=== PATIENT | female | born 1995 | race African-American/Black ===

== ENCOUNTER → 2018-07-26 15:16 | Outpatient (CLI) | payer OTHER ==
[2015-10-15 05:21] VITALS: BMI 26.8
[~2018-07-26 15:16] MED LIST: IBUPROFEN600 MG PO; MOTRIN600 MG PO; PERCOCET 5-3251 TAB PO; PERCOCET 5/3251 TA1 PO; PRENATAL COMPLE1 TAB PO
== END | disposition home or self-care (01) ==
LOC: D.LDO 15:16
PROVIDERS: ATTEND Obstetrics & Gynecology
DX: O26.899 Other specified pregnancy related conditions, unspecified trimester (principal); Z3A.00 Weeks of gestation of pregnancy not specified

== ENCOUNTER → 2018-10-29 07:37 | Outpatient (CLI) | payer OTHER ==
[2015-10-15 05:21] VITALS: BMI 26.8
[2018-10-29 08:46] LABS: APPEARANCE CLEAR (CLEAR); BACTERIA MODERATE /hpf (NONE SEEN); BILIRUBIN NEGATIVE (NEGATIVE); COLOR YELLOW (YELLOW); EPITHELIAL CELLS 0-5 /hpf (0-5); GLUCOSE NEGATIVE (NEGATIVE); KETONE NEGATIVE (NEGATIVE); MUCUS <1+ /lpf (NONE SEEN); NITRITE NEGATIVE (NEGATIVE); PROTEIN NEGATIVE (NEGATIVE); SPECIFIC GRAVITY 1.015 (1.005-1.020); WHITE CELLS - URINE 0-5 /hpf (0-5)
== END | disposition home or self-care (01) ==
LOC: D.LDO 07:37
PROVIDERS: ATTEND Obstetrics & Gynecology
DX: O26.893 Other specified pregnancy related conditions, third trimester (principal); Z3A.33 33 weeks gestation of pregnancy

== ENCOUNTER 2018-11-25 04:07 | Outpatient (CLI) | payer OTHER ==
[2015-10-15 05:21] VITALS: BMI 26.8
== END 2018-11-25 06:14 | disposition home or self-care (01) ==
LOC: D.LDO 04:07
PROVIDERS: ATTEND Obstetrics & Gynecology
DX: O26.893 Other specified pregnancy related conditions, third trimester (principal); Z3A.37 37 weeks gestation of pregnancy

== ENCOUNTER 2018-12-10 05:45 | Inpatient (IN) | payer OTHER ==
[~2018-12-10] VITALS: Ht 160 cm; Wt 102.1 kg
[2018-12-10] VITALS (14 sets, daily range): BP systolic 103–130; BP diastolic 57–86; BMI 39.9
--- NOTE | ~2018-12-10 | OP ---
PATIENT NAME: STEVIE FOLEY MEDICAL RECORD: [id number] :93 LOCATION:[id number] ADMISSION DATE:12/10/18 SURGEON: ALEXX KOWALSKI MD DATE OF OPERATION: 12/10/2018 PREOPERATIVE DIAGNOSES: 1. at 39 weeks and 2 gestational age. 2. History of prior section. POSTOPERATIVE DIAGNOSES: 1. Mother delivered at 39 and 2. 2. History of section. 3. Pelvic adhesions. PROCEDURES: 1. Exploratory laparotomy. 2. Lysis of adhesions. 3. Repeat low transverse section. SURGEON: Alexx Kowalski MD. INDUSTRIAL SERVICER: Manan Blackwell ANESTHESIOLOGIST: Dr. Vargas. ANESTHETIC: Spinal. FINDINGS: Viable male infant, vertex presentation, Apgars 9 and 9, weight 3450 grams. Dense band of adhesions of the lower uterine segment to the bladder and abdominal wall. What was visualized of the pelvic anatomy is unremarkable otherwise. SPECIMENS REMOVED: Placenta. SPECIMEN DISPOSITION: Discarded. ESTIMATED BLOOD LOSS: 700 cc. FLUIDS: 1750 cc of lactated Ringer's. URINE OUTPUT: 500 cc of clear urine. COMPLICATIONS: None. DRAIN: Deleon to gravity. INDICATIONS: The patient is a 23-year-old female at 39 weeks gestation with history of prior section. The patient is consented for repeat and any indicated procedure. DESCRIPTION OF PROCEDURE: After informed consent was assured, the patient was taken to the operating room where anesthetic was obtained. The patient was prepped and draped and the anesthetic was found to be adequate. Incision was made over the old scar and carried down to the underlying layer of the fascia, which was opened in the midline and the opening extended out laterally. Rectus OPERATIVE REPORT [id number] STEVIE FOLEY bellies were now dissected free superiorly and inferiorly and in the midline. The peritoneum was entered sharply. Upon entering the peritoneum, a dense adhesion band on the lower segment of the uterus was encountered. This adhesion band was taken down sharply and with Bovie cautery. Once the adhesion had been taken down and the rectus belly stretched. A Caceres all-purpose retractor was then set and it has been placed into the pelvis and bladder flap developed. Low transverse hysterotomy was performed. The was delivered onto the abdomen atraumatically with the assistance of a Kiwi vacuum extractor. Care was used while placing the Kiwi between the anterior and posterior fontanels. The cord was doubly clamped and cut and the passed to the attendant. Cord blood sample and cord gases obtained. The placenta was delivered via Crede maneuver. Uterus was exteriorized, cleared of all clot and debris and then closed with a running locked stitch of chromic. Uterus was now returned to the abdomen after irrigating the posterior cul-de-sac. Inspection of the hysterotomy reveals adequate hemostasis. Rectus bellies were reapproximated with a loose piece of chromic in the midline. Fascia was now closed with looped PDS. After closure of the fascia, subcutaneous tissues were irrigated, bleeding vessels cauterized, and the skin was reapproximated with 3-0 Monocryl on a Yeyo needle. Sterile dressing was applied. Sponge, lap, needle counts were correct times 2. The patient was taken to the recovery area and to nursery. TRANSINT:[id number] Voice Confirmation ID: [id number] DOCUMENT ID: [id number] ALEXX KOWALSKI MD CC: [id number] DICTATION DATE: 12/10/18 1049 FILAMENT CUTTER: 12/10/18 1116 ADM IN [facility] [address] [place] [address]
[2018-12-10 06:46] LABS: HEMATOCRIT 30.4 % (36.0-48.0); HEMOGLOBIN 9.7 g/dL (12-16); MCH 24.3 pg (26.0-34.0); MCHC 31.9 g/dL (31.0-37.0); MEAN PLATELET VOLUME 10.3 fL (7.4-10.4); RDW 15.4 % (11.5-14.5)
[2018-12-10 06:59] LABS: APPEARANCE HAZY (CLEAR); BILIRUBIN NEGATIVE (NEGATIVE); COLOR YELLOW (YELLOW); GLUCOSE NEGATIVE (NEGATIVE); KETONE NEGATIVE (NEGATIVE); NITRITE NEGATIVE (NEGATIVE); PROTEIN NEGATIVE (NEGATIVE); SPECIFIC GRAVITY 1.005 (1.005-1.020); UROBILINOGEN NORMAL (NORMAL)
[2018-12-10 07:00] LABS: EPITHELIAL CELLS 0-5 /hpf (0-5); RED CELLS - URINE NONE SEEN /hpf (0-5); WHITE CELLS - URINE 0-5 /hpf (0-5)
[2018-12-10 07:01] LABS: BACTERIA FEW /hpf (NONE SEEN)
--- NOTE | 2018-12-10 10:55 | NUR ---
PT ARRIVED ACTIVELY VOMITING. NEW ORDERS REC'D AND WILL PROVIDE ANTIENEMIC. PT A&O. VSS. FUNDUS FIRM AND MIDLINE. PT UNABLE TO MOVE LEGS/WIGGLE TOES R/T EPIDURAL. NO IMMEDIATE NEEDS. WILL CTM.
--- NOTE | 2018-12-10 11:43 | NUR ---
RECEIVED PT IN ROOM 1273 WITH RR NURSE WITH PT. VS NOTED. FUNDUS FIRM AT U/U. RUBRA LOCHIA SMALL AMT. PERIPAD CHANGED. NO CLOTS NOTED. ABDOMINAL DRESSING DRY WITHOUT DRAINAGE NOTED. ICE PACK ON INCISION. KERNS TO GRAVITY DRAINING DARK, YELLOW URINE. STAT LOCK TO KERNS TO SECURE TO LEG. PIV OF NS WITH PITOCIN 20 UNITS TO LEFT WRIST-18 GAUGE. PLACED ON PUMP AT 125 ML/HR. SITE CLEAR. PT STATES INCISIONAL PAIN OF "5" ON 0-10 PAIN SCALE. ORIENTED TO ROOM, BED, AND CALL LIGHT. SR UPX 2. CALL LIGHT IN REACH.
--- NOTE | 2018-12-10 12:23 | NUR ---
PT ADMIN 2MG DILAUDID IVP PER ORDER FOR PAIN RATED 9/10, SEE EMAR FOR DOC.
--- NOTE | 2018-12-10 13:40 | NUR ---
THIS RN TO ROOM FOR PT CHECK. PT RESTING, DENIES NEEDS AT THIS TIME. KERNS CATH DRAINING CLEAR YELLOW URINE, UROMETER EMPTIED. WILL CONT TO MONITOR.
--- NOTE | 2018-12-10 14:15 | NUR ---
PT ADMIN 3OMG TORADOL IVP SCHEDULED, SEE EMAR FOR DOC. PT RATING PAIN 10/10 AT THIS TIME.
--- NOTE | 2018-12-10 14:20 | NUR ---
FF, ML, U/U. SMALL RUBRA LOCHIA WITHOUT CLOTS. PERIPAD CHANGED. PT PROVIDED WITH NEW ICE PACK TO ABD, APPLE JUICE PER REQUEST, AND CUP OF ICE. PT DENIES FURTHER NEEDS AT THIS TIME. SRUx2, CL IN REACH. SIG OTHER ON BEDSIDE COUCH.
--- NOTE | 2018-12-10 16:00 | NUR ---
THIS RN TO ROOM FOR PT CHECK. PT REQUESTING NEXT DOSE PAIN MED WHEN AVAILABLE. KERNS CATH UROMETER EMPTIED, ADEQUATE URINE OUTPUT NOTED AND CHARTED. WILL RETURN WITH PAIN MED AT 4HRS FROM PREV DOSE.
--- NOTE | 2018-12-10 16:30 | NUR ---
PT ADMIN 2MG DILAUDID IVP PER ORDER, SEE EMAR FOR DOC. PT RATING PAIN 9/10 AT THIS TIME. FF, ML, U/U. SMALL RUBRA LOCHIA, NO CLOTS. PERIPAD CHANGED.
--- NOTE | 2018-12-10 17:53 | NUR ---
PT C/O ITCHING. NO REDNESS NOTED TO ARMS WHERE PT STATES ITCHING.
--- NOTE | 2018-12-10 18:03 | NUR ---
BENADRYL 25 MG GIVEN PO ORDERED FOR PT C/O ITCHING. PT INSTRUCTED ON MED. VERBALIZES UNDERSTANDING.
--- NOTE | 2018-12-10 18:10 | NUR ---
PIV CONVERTED TO SALINE LOCK. PT GIVEN PERCOCET 10/325 PO ORDERED FOR PAIN OF "6" ON 0-10 PAIN SCALE. KERNS DC'D WITH 1100 ML OF DARK, YELLOW URINE NOTED IN BAG. PT INSTRUCTED TO CALL NURSE WHEN HAS URGE TO VOID AND NOT GET OUT OF BED WITHOUT NURSE. PT VERBALIZES UNDERSTANDING.
--- NOTE | 2018-12-10 19:45 | NUR ---
ASSESSMENT PER FLOW SHEET, VS OBTAINED, SALINE LOCK TO LEFT WRIST INTACT WITH NO REDNESS OR EDEMA, FF, ML, U/U, LITE BLEEDING NOTED WITH NO CLOTS, [employer] WITH LARGE DRESSING CDI, PT INFORED THAT SHE WAS GOING TO BE TRANSFERRED TO [facility], PT STATES "OH, THAT SOUNDS GOOD", PT INST ON GETTING UP TO BR, PT VERBALIZES UNDERSTANDING, PT UP TO BR WITH ASSISTANCE, GAIT STEADY, VOIDED 300 MLS OF BLOOD TINGED URINE BY SELF WITH NO DIFFICULTY, PT CLEANED UP WITH WET WARM WASH CLOTHS, CRISTIANA PAD, PANTIES, AND CLEAN GOWN APPLIED, PT BACK TO SIDE OF BED, INFORMED PT THAT I WILL TRANSFER HER VIA WC TO OTHER ROOM
--- NOTE | 2018-12-10 20:10 | NUR ---
PT TRANSFERRED VIA WC TO ROOM 1257 WITH ALL BELONGINGS, FAMILY IN ROOM, PT TRANSFERS SELF TO BED, PT ORIENTED TO ROOM, PT INST TO USE CALL LIGHT FOR ANY ASSISTANCE, PT VERBALIZES UNDERSTANDING, BED IN LOW POSITION, SIDE RAILS X 2, CALL LIGHT IN REACH
--- NOTE | 2018-12-10 20:40 | NUR ---
BABY TO ROOM PER THIS RN, BANDS CHECKED
--- NOTE | 2018-12-10 21:18 | NUR ---
PT RESTING, FEMALE HOLDING , PT DENIES NEEDS NEEDS AT THIS TIME
--- NOTE | 2018-12-10 22:28 | NUR ---
PT TEST PREPARER LIGHT, C/O INC PAIN, ADM PERCOCET PER MD ORDERS, SEE EMAR, PT DENIES FURTHER NEEDS, BABY IN OPEN CRIB CART AND FOB AT BEDSIDE
--- NOTE | 2018-12-10 23:40 | NUR ---
PT AWAKE, ADM TORADOL PO PER MD ORDERS, SEE EMAR, VS OBTAINED, PT DENIES FURTHER NEEDS, FOB BOTTLE FEEDING INFANT
--- NOTE | 2018-12-11 00:41 | NUR ---
PT VISITING WITH FOB, BABY IN OPEN CRIB CART, PT REPORTS VOIDING WITH NO DIFFICULTY, EMPTIED 500 MLS OF BLOOD TINGED URINE FROM [place] HAT, PT RATES INC PAIN 09/05, SCD'S APPLIED AND WORKING PROPERLY, DENIES NEEDS, BED IN LOW POSITION, SIDE RAILS X 2, CALL LIGHT IN REACH
--- NOTE | 2018-12-11 02:44 | NUR ---
UPON ENTERING ROOM, PT IS RESTING WITH EYES CLOSED, LAYING ON BED, PT AROUSES TO SOFT VERBAL STIMULATION, PT INST ON STAYING AWAKE WHILE IN BED WITH PT, PT VERBALIZES UNDERSTANDING, OFFERED PAIN MED AT THIS TIME, PT STATES "I'M FINE RIGHT NOW, I DON'T NEED ANYTHING FOR PAIN", SCD'S ON AND WORKING PROPERLY, DENIES NEEDS, FOB ASLEEP ON COUCH, BED IN LOW POSITION, SIDE RAILS X 2, CALL LIGHT IN REACH
--- NOTE | 2018-12-11 03:10 | NUR ---
REPORT RECEIVED FROM FREDERIC MAI. PT IN BED RESTING WITH EYES CLOSED. NO DISTRESS NOTED
--- NOTE | 2018-12-11 03:20 | NUR ---
REPORT TO JASON MORAES RN
--- NOTE | 2018-12-11 04:11 | NUR ---
STATED PAIN 10/10 TO ABD AREA. PAIN MED GIVEN PER ORDER. SEE EMAR. VS TAKEN. VSS
[2018-12-11 04:31] VITALS: BP 120/64
--- NOTE | 2018-12-11 05:08 | NUR ---
RESTING IN BED WITH EYES CLOSED. CL IN REACH. SR UP X2. WILL MONITOR
--- NOTE | 2018-12-11 06:00 | NUR ---
RESTING IN BED WITH EYES CLOSED. NO DISTRESS NOTED. CL IN REACH. WILL MONITOR
[2018-12-11 06:09] LABS: RAPID PLASMA REAGIN Non Reactive (Non Reactive)
--- NOTE | 2018-12-11 07:00 | NUR ---
RECEVIED REPORT FROM PM NURSE JASON MAI. STATES PATIENT HAS DONE WELL OVER NIGHT. NO PROBLEMS TO REPORT.
[2018-12-11 07:24] LABS: BASOPHILS 0.1 % (0-2); EOSINOPHILS 0.7 % (0-7); HEMATOCRIT 28.2 % (36.0-48.0); HEMOGLOBIN 8.9 g/dL (12-16); IMMATURE GRANULOCYTES 0.2 % (0-5); LYMPHOCYTES 14.1 % (15-50); MCH 24.1 pg (26.0-34.0); MCHC 31.6 g/dL (31.0-37.0); MCV 76.4 fL (80.0-100.0); MEAN PLATELET VOLUME 10.3 fL (7.4-10.4); MONOCYTES 7.4 % (2-11); NEUTROPHILS 77.5 % (40-80); PLATELET COUNT 195 10x3/uL (130-400); RBC 3.69 10x6/uL (4.00-5.40); RDW 15.6 % (11.5-14.5)
[2018-12-11 07:27] LABS: WBC 9.6 10x3/uL (4.8-10.8)
[2018-12-11 07:30] VITALS: BP 103/71
--- NOTE | 2018-12-11 08:30 | NUR ---
TOWELS PLACED IN BATHROOM PER PT REQUEST FOR SHOWER. PT DENIES NEEDING ANY ASSISTANCE. BED LINENS CHANGED AT THIS TIME. SIG OTHER ON COUCH WITH IN CRIB AT BEDSIDE.
--- NOTE | 2018-12-11 09:15 | NUR ---
PT OUT OF SHOWER AND STATES SHE WAS ABLE TO REMOVE BANDADE WHILE SHOWERING, FUNDUS FIRM AT U/1 WITH SCANT BLEEDING NOTED TO CRISTIANA PAD. MESH BRIEFS PLACED IN BATHROOM REQUESTED. RATES PAIN AT 4/10 AND DENIES NEEDS. IN CRIB AT BEDSIDE, FAMILY PRESENT. SIDE RAILS UP X 2 WITH CALL LIGHT IN REACH.
--- NOTE | 2018-12-11 10:30 | NUR ---
PATIENT LYING SUPINE IN BED. NO C/O PAIN AT THIS TIME.
--- NOTE | 2018-12-11 12:30 | NUR ---
PT CALLS OUT TO ASK ABOUT MEAL TICKET FOR SPOUSE. THANK YOU BOX TAKEN TO PT AT THIS TIME. NO OTHER NEEDS VOICED.
--- NOTE | 2018-12-11 14:00 | NUR ---
PATIENT C/O PAIN. MEDICATION GIVEN DOCUMENTED.
[2018-12-11 14:30] VITALS: BP 108/61
--- NOTE | 2018-12-11 16:15 | NUR ---
INFANT SHIRT AND BLANKETS X 2 TAKEN TO ROOM PER REQUEST. RATES PAIN AT 3/10 AND DENIES NEEDS. SIDE RAILS UP X 2 WITH CALL LIGHT IN REACH AND FAMILY/FRIENDS PRESENT.
--- NOTE | 2018-12-11 17:48 | NUR ---
PAIN MED GIVEN SCANNED TO EMAR. PT RATES PAIN AT INCISION SITE AT 6/10. SHE IS CURRENTLY SITTING UP ON SIDE OF BED EATING REGULAR DIET. LARGE CUP OF ICE WITH APPLE JUICE PROVIDED PER HER REQUEST.
--- NOTE | 2018-12-11 19:25 | NUR ---
PM ROUNDS MADE, PT VISITING WITH FAMILY AND FRIENDS, FEMALE FRIEND HOLDING , INFORMED PT THAT I WILL BE BACK SHORTLY TO DO ASSESSMENT, PT VERBALIZES UNDERSTANDING, DENIES NEEDS AT THIS TIME
[2018-12-11 20:30] VITALS: BP 120/77
--- NOTE | 2018-12-11 20:30 | NUR ---
ASSESSMENT PER FLOW SHEET, VS OBTAINED, PT C/O SALINE LOCK, REPORTS THAT IT IS "HURTING", SALINE LOCK REMOVED, TIP INTACT, PRESSURE HELD, BANDAID APPLIED, FF, ML, U/1, PT REPORTS LITE BLEEDING WITH NO CLOTS, [employer] INC WITH STERI STRIPS CDI WITH NO DRAINAGE NOTED, CRISTIANA PAD OVER INC FOR COMFORT AND MOISTURE CONTROL, PT REPORTS FLATUS, NO BM AND VOIDING WITH NO DIFFICULTY, PT RATES INC PAIN AND CRAMPING 2/10, REQUESTED AND SERVED APPLE JUICE, DINNER TRAY REMOVED, DENIES FURTHER NEEDS, BED IN LOW POSITION, SIDE RAILS X 2, CALL LIGHT IN REACH, FAMILY AND FRIENDS AT BEDSIDE
--- NOTE | 2018-12-11 21:49 | NUR ---
DENIES NEEDS AT THIS TIME. PAIN IS FINE AND SHE HAS A DRINK. ENC TO CALL WITH ANY NEEDS CONCERNS.
--- NOTE | 2018-12-11 22:10 | NUR ---
PT SITTING UP IN BED HOLDING , RATES CRAMPING 4/10, DENIES NEED FOR PAIN MED AT THIS TIME, INST PT TO USE CALL LIGHT WHEN READY FOR PAIN MED, PT VERBALIZES UNDERSTANDING, DENIES NEEDS, FOB AT BEDSIDE
--- NOTE | 2018-12-11 22:47 | NUR ---
PT LASER SYSTEMS ENGINEER LIGHT, PT REQUESTED PAIN MED, RATES CRAMPING 01/05, ADM PAIN MED PER MD ORDERS, SEE EMAR, PT DENIES FURHTER NEEDS, HOLDING INFANT, FOB ASLEEP ON COUCH
[2018-12-12 00:48] VITALS: BP 105/61
--- NOTE | 2018-12-12 00:48 | NUR ---
PT AWAKE, HOLDING INFANT, VS OBTAINED, ADM TORADOL PER MD ORDERS, SEE EMAR, PT DENIES FURTHER NEEDS, FOB ASLEEP ON COUCH
--- NOTE | 2018-12-12 02:00 | NUR ---
PT AWAKE, DENIES NEEDS OR PAIN, FOB AND IN OPEN CRIB CART AT BEDSIDE
--- NOTE | 2018-12-12 05:05 | NUR ---
PT RESTING WITH EYES CLOSED, RESP QUIET, NO DISTRESS NOTED, LEFT UNDISTURBED AT THIS TIME, BED IN LOW POSITION, SIDE RAILS X 2, CALL LIGHT IN REACH, FOB ASLEEP ON COUCH
--- NOTE | 2018-12-12 07:15 | NUR ---
THIS RN TO ROOM FOR AM ASSESSMENT, UPON ENTERING ROOM PT IS JUST GETTING UP TO BATHROOM. PER PT REQUEST WILL RETURN WHEN SHE IS FINISHED WITH BREAKFAST, ASK THAT SHE PLEASE CALL FOR NURSE AT THAT TIME.
--- NOTE | 2018-12-12 08:30 | NUR ---
ASSESSMENT COMPLETED, FUNDUS FIRM AT U/1 WITH SCANT BLEEDING NOTED. RATES PAIN AT 8/10 AND REQUEST PAIN MED. VSS CHARTED ON FLOWSHEET. INFANT IN CRIB AT BEDSIDE.
[2018-12-12 08:43] VITALS: BP 115/72
--- NOTE | 2018-12-12 08:43 | NUR ---
PAIN MEDS GIVEN SCANNED TO EMAR. LARGE ICE WATER PER REQUEST. DENIES ANY OTHER NEEDS. SIDE RAILS UP X 2 WITH CALL LIGHT AND PHONE WITHIN HER REACH.
--- NOTE | 2018-12-12 09:30 | NUR ---
PAIN REASSESMENT, RATES PAIN AT 2/10. VISITING WITH FRIENDS/FAMILY AT BEDSIDE.
[2018-12-12 10:55] VITALS: Ht 160 cm; Wt 102.1 kg
[2018-12-12] MEDS ORDERED: MOBIC7.5 MG PO (11:02)
[2018-12-12] MEDS ORDERED: PERCOCET 7.5/321 TAB PO (11:04)
--- NOTE | 2018-12-12 11:45 | NUR ---
large cup of ice per request. no other needs at this time.
--- NOTE | 2018-12-12 13:30 | NUR ---
verbal and written d/c instructions gone over with pt, she is also provided with written scripts for Percocet 7.5mg and Mobic 15mg with info on each med. denies questions or concerns and states understanding to s/s of infection. Volunteer notified for wheelchair out and nursery called that pt had secured in to carrier.
--- NOTE | 2018-12-12 14:00 | NUR ---
taken out by wheelchair per volunteer, infant secured in to carrier, home by private car with her mother.
== END 2018-12-12 14:10 | disposition home or self-care (01) | DRG 788 ==
LOC: D.LD 05:45 → D.SDCHOLD 08:45 → D.LD 20:10
PROVIDERS: ADMIT Obstetrics & Gynecology; ATTEND Obstetrics & Gynecology
PROC: 0JNC0ZZ Release Pelvic Region Subcutaneous Tissue and Fascia, Open Approach (ICD-10-PCS; 2018-12-10)
PROC: 10D00Z1 Extraction of Products of Conception, Low, Open Approach (ICD-10-PCS; principal; 2018-12-10 08:45)
DX: O34.211 Maternal care for low transverse scar from previous cesarean delivery (principal); Z3A.39 39 weeks gestation of pregnancy; Z37.0 Single live birth; N73.6 Female pelvic peritoneal adhesions (postinfective)